=== PATIENT | male | born 1970 | race Caucasian/White ===

== ENCOUNTER 2020-02-28 15:55 | Outpatient (CLI) | payer OTHER, SELFPAY ==
--- NOTE | ~2020-02-28 | XR_ITS ---
EXAMINATION: XR hip RT min 3V w AP pelvis DATE: 02/28/2020 16:39 INDICATION: Right hip and groin pain. TECHNIQUE: Anteroposterior view of the pelvis and anteroposterior, frog leg and cross-table lateral v iews of the right hip were obtained. COMPARISON: None. FINDINGS: Alignment is normal. No fracture. Severe right hip osteoarthritis with superolateral predominant join t space narrowing which approaches [id number] with subarticular cystic change at the apex of the fe moral head and at the superolateral acetabulum. Marginal osteophytes about the right femoral head as well as decreased anterosuperior femoral head neck offset. Mild left hip osteoarthritis. Transitional lumbosacral segment with severe lower lumbar facet osteoarthritis. Hypertrophic change at the pubic symphysis. Phleboliths in the pelvis. IMPRESSION: 1. Severe right hip osteoarthritis. Reviewed, dictated and finalized at location A.
== END 2020-02-28 15:56 | disposition home or self-care (01) ==
PROVIDERS: PCP Family Medicine; Visit Provider Physician Assistant
DX: M25.559 Pain in unspecified hip (principal); M16.11 Unilateral primary osteoarthritis, right hip
CPT/HCPCS: 73502

== ENCOUNTER 2020-03-09 12:27 | Outpatient (CLI) | payer OTHER, SELFPAY ==
--- NOTE | ~2020-03-09 | XR_ITS ---
EXAMINATION: XR lg joint inject/asp w image DATE: 03/09/2020 13:21 INDICATION: Right hip pain TECHNIQUE: A time-out was performed to verify the patient's name, date of , and procedure to b e performed. The procedure including the risks, benefits, and alternatives was discussed with the pat ient. Risks discussed included bleeding and infection. The patient understood the risks and agreed to proceed. The skin overlying the right hip joint was prepped and draped in usual sterile fashion. A nesthetic was administered with 1% lidocaine subcutaneously. A 22 G needle was advanced under fluoro scopic guidance into the joint. Injection of 0.4 mL of Omnipaque 240 confirmed intra-articular posit ion of the needle. Subsequently, injectate consisting of 3 mm of a 2:1 mixture of 0.5% Marcaine: 80 mg/mL Depo-Medrol for a total dose of 80 mg Depo-Medrol was instilled. Washout of contrast was seen c onfirming intra-articular administration. The needle was removed and the entry site was cleaned and d ressed. There were no immediate complications. Fluoroscopy exposure time was 0.1 minutes. The total number of images was 2. FINDINGS: Real-time fluoroscopy demonstrates the needle in the right hip joint. Patient's pain prior to procedure:2/10. Patient's pain following the procedure: 0/10. IMPRESSION: 1. Right hip joint injection of local anesthetic and steroid with decrease in the patient's presentin g pain. Reviewed, dictated and finalized at location A. IMPRESSION: 1. Right hip joint injection of local anesthetic and steroid with decrease in t he patient's presenting pain.
== END 2020-03-09 12:28 | disposition home or self-care (01) ==
PROVIDERS: PCP Family Medicine; Visit Provider Orthopaedic Surgery
DX: M16.11 Unilateral primary osteoarthritis, right hip (principal)
CPT/HCPCS: 20610; 77002; J1040; Q9966

== ENCOUNTER 2020-07-17 13:57 | Outpatient (CLI) | payer OTHER, SELFPAY ==
--- NOTE | 2020-07-17 14:41 | ECG_ITS ---
Measurements Intervals [place] Rate: 55 P: 33 MA: 138 QRS: 13 QRSD: 111 T: 2 QT: 390 QTc: 376 Interpretive Statements SINUS BRADYCARDIA INTRAVENTRICULAR CONDUCTION DELAY DELAYED PRECORDIAL R/S TRANSITION MINIMAL Q WAVES- HIGH LATERAL LEADS BORDERLINE T WAVE ABNORMALITY- INFERIOR LEADS BORDERLINE ECG Electronically Signed On 07-17-2020 14:58:40 HOUSE PAINTING INSTRUCTOR by Javier Campa D.O.
[2020-07-17 15:06] LABS: Basophils Absolute Auto 0.1 K/mm3 (0.0-0.1); Eosinophils Absolute Auto 0.6 K/mm3 (0-0.3); Eosinophils Percent Auto 5.9 % (0-4.4); Hemoglobin 13.9 g/dL (14.0-18.0); Immature Granulocyte Absolute 0.05 K/mm3 (0.00-0.031); Immature Granulocyte Percent A 0.5 % (0-0.5); Lymphocytes Absolute Auto 1.99 K/mm3 (0.9-3.2); Lymphocytes Percent Auto 21.3 % (18.3-44.2); Mean Corpuscular HGB Conc 33.9 g/dl (32-36); Mean Corpuscular Hemoglobin 30.6 pg (26-34); Mean Corpuscular Volume 90.3 fl (80-100); Mean Platelet Volume 8.6 fl (7.4-10.4); Monocytes Absolute Auto 0.7 K/mm3 (0.1-0.6); Monocytes Percent Auto 7.6 % (2.6-8.5); Neutrophils Percent Auto 63.7 % (45.5-73.1); Platelet Count Result 363 k/mm3 (150-375); Red Blood Count 4.54 M/mm3 (4.6-6.20); Red Cell Distribution Width 12.6 % (11.5-14.5); White Blood Count 9.3 K/mm3 (4.5-10.0)
[2020-07-17 15:09] LABS: Add Urine Microscopic? YES; Appearance Urine Clear (Clear); Bilirubin Urine Negative (Negative); Blood Urine Negative (Negative); Color Urine Yellow (Yellow); Glucose Urine UA Negative (Negative); Ketones Urine Negative (Negative); Leukocyte Esterase Ur Negative LEU/UL (Negative); Mucus Urine Rare /lpf; Nitrate Urine Negative (Negative); Protein Urine 1+ mg/dL (Negative); RBC Urine 0-2 /hpf (0-2); Specific Grav Ur 1.029 (1.001-1.035); Urobilinogen Urine Negative mg/dL (<2.0); WBC Urine 0-3 /hpf
[2020-07-17 15:13] LABS: Urine Cotinine NEGATIVE
[2020-07-17 15:15] LABS: Albumin Level 4.6 g/dL (3.5-5.1); Anion Gap 8 mmol/L (8-16); Blood Urea Nitrogen 19 mg/dL (9-20); Calcium 9.2 mg/dL (8.4-10.2); Carbon Dioxide 30 mmol/L (22-30); Chloride 106 mmol/L (98-107); Estimated Glomerular Filt Rate > 60; Glucose 88 mg/dL (75-110); Potassium 4.3 mmol/L (3.4-5.0); Prothrombin Time 13.5 Seconds (11.1-14.7); Sodium 144 mmol/L (137-145)
[2020-07-17 15:16] LABS: Partial Thromboplastin Time 27.6 SECONDS (22.3-36.8)
[2020-07-17 18:54] LABS: Hemoglobin A1C 5.2 % (<5.7)
== END 2020-07-17 13:58 | disposition home or self-care (01) ==
LOC: ANHSURGERY 13:59
PROVIDERS: PCP Family Medicine; Visit Provider Orthopaedic Surgery
DX: M16.9 Osteoarthritis of hip, unspecified (principal); Z01.818 Encounter for other preprocedural examination; I45.9 Conduction disorder, unspecified
CPT/HCPCS: 80048; 80307; 81001; 82040; 83036; 85025; 85610; 85730; 87081; 93005

== ENCOUNTER 2020-07-29 10:26 | Outpatient (CLI) | payer OTHER, SELFPAY ==
[2020-07-29 21:18] LABS: SARS-CoV-2 RNA PCR Negative
== END 2020-07-29 10:27 | disposition home or self-care (01) ==
LOC: ANHCOVIDDT 10:28
PROVIDERS: PCP Family Medicine; Visit Provider Orthopaedic Surgery
DX: Z01.812 Encounter for preprocedural laboratory examination (principal); Z20.828 Contact with and (suspected) exposure to other viral communicable diseases
CPT/HCPCS: 87635; C9803; U0003

== ENCOUNTER 2020-08-17 10:45 | Outpatient (RCR) | payer OTHER, SELFPAY ==
--- NOTE | 2020-08-17 11:40 | PTOPEVAL ---
Thank you for referring Anthony Mai to [facility].? Pt seen for pre-op visit for THR on 08/23/20. Skilled teaching completed. No additional therapy planned. Please review, sign, date and return this plan of care CELIO. I agree with and certify that the following plan of care is medically necessary. Referring Physician Date Admitting Provider: Attending Provider: Jesse Maya MD *PT Outpatient Evaluation Start: 08/17/20 10:56 Freq: Status: Active Protocol: Document 08/17/20 10:56 ANIKA (Rec: 08/17/20 11:40 ANIKA [id number]) Therapy Assessment Status Assessment Status Assessment Status Evaluation/Discharge Note Outpatient Past Medical History Past Medical History Source of Past Medical History Patient,Recalled from Previous Visit, Confirmed with Patient /Family Neurological History Hx Neurological Disorders No Significant History Cardiovascular History Hx Other Cardiac Disorders Yes: DENIES CARDIAC SYMPTOMS, WOULD RUN 3-5 MILES 3XWK. OCCUPATION FACILITATOR Respiratory History Hx Respiratory Disorders No Significant History Gastrointestinal History Hx Gastrointestinal Disorders No Significant History Genitourinary History Hx Genitourinary Disorders No Significant History Musculoskeletal History Hx Crutches or Walker Use Yes: PT HAS WALKER FOR POST OP Query Text:If Yes, Enter Crutches, USE & WILL BRING DAY OF Walker, or Both in the Comment SURGERY Hx Other Musculoskeletal Disorders Yes: DJD RT HIP Hematological History Hx Hematological Disorders No Significant History Endocrine History Hx Endocrine Disorders No Significant History HEENT History Hx Sinus Problems Yes: OCC SINUS ALLERGIES Hx Other HEENT Disorders Yes: READING GLASSES Integumentary History Hx Skin Disorders No Significant History Reproductive History Hx Reproductive Disorders No Significant History Psychosocial History Hx Psychiatric Disorders No Significant History Pain History History of Any Previous or Ongoing No Significant History Instance of Pain Anesthesia History Hx Other Anesthesia Reactions Yes: HAS NEVER HAD GENERAL ANESTHESIA Evaluation Information Problem Diagnosis OA of right hip Onset 1 yr Additional Evaluation Detail planned TKR 08/23/20 Subjective Information He reports decreased leann with Query Text:As Reported By Patient/ increased pain with climbing Family ladders, walking, sleeping on right side, prolonged sitting/ standing. He has difficulty with bending and lifting task.
== END 2020-08-17 14:17 | disposition home or self-care (01) ==
LOC: ANHPT 10:45
PROVIDERS: PCP Family Medicine; Visit Provider Orthopaedic Surgery
DX: M16.11 Unilateral primary osteoarthritis, right hip (principal)
CPT/HCPCS: 97110; 97161

== ENCOUNTER 2020-08-19 00:40 | Outpatient (CLI) | payer OTHER, SELFPAY ==
[2020-08-19 19:14] LABS: SARS-CoV-2 RNA PCR Negative
== END 2020-08-19 00:41 | disposition home or self-care (01) ==
LOC: ANHCOVIDDT 00:40
PROVIDERS: PCP Family Medicine; Visit Provider Orthopaedic Surgery
DX: Z01.818 Encounter for other preprocedural examination (principal); Z20.828 Contact with and (suspected) exposure to other viral communicable diseases
CPT/HCPCS: 87635; C9803; U0003

== ENCOUNTER 2020-08-23 00:35 | Day surgery (SDC) | payer OTHER, SELFPAY ==
[2020-07-17 14:05] VITALS: BMI 26.1
[2020-07-17 14:39] VITALS: BP 141/87; PULSE 69; RESP 16; TEMP 37.2; O2SAT 99
[2020-08-17 08:40] VITALS: BMI 25.9
--- NOTE | 2020-08-22 12:46 | WPDANESEPPF ---
Anes - Initial Pre Proc Eval Procedure: Operation Date: 08/23/20 07:30 Proposed Procedures p Right Total Hip Arthroplasty - Jesse Maya MD Date/Time: 08/22/20 12:46 Surgeon: Jesse Maya MD Pre Op Diagnosis: Right Hip DJD Patient Data Age: 49 Gender: M Height: 1.73 m Weight: 77.5 kg Last Vital Signs Temp 37.2 C 07/17/20 14:39 Pulse 69 07/17/20 14:39 Resp 16 07/17/20 14:39 BP 141/87 H 07/17/20 14:39 Pulse Ox 99 07/17/20 14:39 Allergies Allergy/AdvReac Type Severity Reaction Status Date / Time Penicillins Allergy Mild rash Verified 08/23/20 06:10 Home Medications Medication Instructions Recorded Confirmed Type chlorhexidine gluconate 4 % 1 applic TOPICAL ONCE #237 ml 05/29/20 08/17/20 Rx topical liquid meloxicam 15 mg PO PRN PRN 07/17/20 08/23/20 History aspirin 325 mg tablet 325 mg PO BID #56 tablet 08/21/20 Rx docusate sodium 100 mg capsule 100 mg PO BID #60 cap 08/21/20 Rx Patient hx anesthesia problems: none Family hx anesthesia problems: none PMFSH Past Medical History Medical History Degenerative joint disease (DJD) of hip Hyperlipidemia Family History Family History Other Hyperlipidemia Hypertension Lupus Social History Social History Smoking packs per day: 1 Smoking cigarettes per day: 20.0 Years smoked: 16 Smoking pack-years: 16.00 Smoking status: Former smoker Tobacco type: cigarettes Smoking end date: 09/15/06 Additional smoking assessment comments: DENIES ANY FORM OF TOBACCO/NICOTINE USE Alcohol intake: never Alcohol use details: RECOVERING ALCOHOLIC- LAST DRINK 2004 Substance use: former Substance use type: marijuana and crack/cocaine Living arrangements: with family Spiritual care concerns: No Anes - Eval Final PreProcedure Day of Procedure 08/22/20 12:46 Patient weight: overweight Heart: regular rate and rhythm Lungs: clear to auscultation and normal air movement Airway: Mallampati scale class II Neurological: alert and oriented Last oral intake: >/= 8 hours ASA classification: II Emergent: no Anesthetic plan: proceed Anesthesia type and monitoring: regional spinal Informed Consent: The patient's anesthetic plan and its attendant risks and benefits were discussed with the patient/family/POA. Questions were solicited and answers provided to the satisfaction of the patient/family/POA.
[2020-08-23] VITALS (14 sets, daily range): BP systolic 102–142; BP diastolic 66–90; PULSE 45–67; RESP 12–18; TEMP 36.1–36.6; O2SAT 98–100
--- NOTE | ~2020-08-23 | XR_ITS ---
EXAMINATION: XR hip RT 1V DATE: 08/23/2020 10:38 INDICATION: Postoperative evaluation following right total hip arthroplasty TECHNIQUE: Anteroposterior view of the right hip was obtained. COMPARISON: 07/27/2020 FINDINGS: Interval placement of a right total hip arthroplasty which appears well seated in near anatomic align ment. Minimal postoperative subcutaneous gas in the surrounding soft tissues. No fractures identified . IMPRESSION: 1. Right total hip arthroplasty, negative for postoperative purposes on single provided frontal proje ction. Reviewed, dictated and finalized at location A. NCIAL AID ADVISOR IMPRESSION: 1. Right total hip arthroplasty, negative for postoperative purposes on single provided frontal projection.
[2020-08-23] MEDS: ACETAMINOPHEN 500 MG TABLET 1000 MG PO (06:55)
[2020-08-23] MEDS: LACTATED RINGERS 1,000 ML 30 ML IV CONT ×2 (06:55→10:26)
[2020-08-23] MEDS: TRANEXAMIC ACID 1,000MG/ISO100 1,000 MG/100 ML BAG 200 MG IVPB (06:56)
--- NOTE | 2020-08-23 07:18 | WPDHPUPDATE1 ---
History and Physical Update Update Date/Time: 08/23/20 07:18 History and Physical has been reviewed, including an updated exam of the patient. There are NO changes in the patient's condition. Risks, benefits, and alternatives have been discussed and questions answered. Patient agrees to proceed with procedure.
[2020-08-23] MEDS: CLINDAMYCIN 900 MG/D5W 50 ML 900 MG/50 ML PIGGYBACK 50 MG IVPB (07:33)
[2020-08-23] MEDS: ceFAZolin SODIUM 1 GM VIAL 2 GM IV PUSH (08:41)
[2020-08-23] MEDS: BUPIVACAINE HCL 0.5% PF 30 ML VIAL 20 ML INFILTRATE (09:45)
--- NOTE | 2020-08-23 10:45 | PM.PROC ---
Procedure Note - Detailed Date of procedure: 08/23/20 Pre-op diagnosis: Right Hip DJD R HIP DJD Post-op diagnosis: same Procedure performed: R KELSEY Description of procedure: THE PATIENT WAS TAKEN TO THE OPERATING ROOM IN STABLE CONDITION AND WAS PLACED IN THE LATERAL DECUBITUS AND THE RIGHT LOWER EXTREMITY WAS PREPPED AND DRAPED IN THE STERILE FASHION. INCISION WAS MADE IN THE POSTERIOR LATERAL SIDE OF THE HIP, DOWN TO THE FASCIA LAYER. THE FASCIA WAS INCISED. THE HIP WAS EXPOSED. THE SHORT EXTERNAL ROTATORS WERE EXPOSED. THE SCIATIC NERVE WAS IDENTIFIED. INCISION WAS MADE THROUGH THE SORT EXTERNAL ROTATORS AND THE CAPSULE OF THE HIP JOINT. THE HIP WAS DISLOCATED. AN OSTEOTOMY WAS MADE TO THE FEMORAL NECK ABOUT 1 CM PROXIMAL TO THE LESSER TROCHANTER. THE ACETABULUM WAS EXPOSED. THERE WAS SEVERE DJD SEEN. BEGINNING WITH A 44 REAMER THE ACETABULUM WAS REAMED TO 53 MM. A 53 MM TRIAL WAS PLACED IN 35 DEG OF ABDUCTION AND ANTEVERSION WAS IN ALIGNMENT WITH THE TRANS ACETABULAR LIGAMENT. THE FIT WAS EXCELLENT. THE TRIAL WAS REMOVED. A 54 MM BIOMET G7 COMPONENT WAS THEN TAPPED IN TO PLACE IN 35 DEG OF ABDUCTION AND ANTEVERSION IN ALIGNMENT WITH THE TRANSVERSE ACETABULAR LIGAMENT. THE FIT WAS EXCELLENT. THE ACETABULAR LINER WAS PLACED AND CHECKED FOR STABILITY. NEXT THE FEMUR WAS PREPARED WITH INITIAL CANAL FINDER THEN SEQUENTIAL BROACHING WITH A TAPERLOC HIP SYSTEM, UNTIL A 7 BROACH FIT WELL IN 15 OF ANTEVERSION. A 0 STANDARD OFFSET NECK WITH 36 MM HEAD TRIAL WAS PLACED. THE JANET TEST WAS EXCELLENT AND THE STABILITY IN FLEXION AND ROTATION WAS EXCELLENT. LEG LENGTHS WERE GROSSLY EQUAL. TRIALS WERE REMOVED. A BIOMET TAPERLOC 7 STEM WAS PLACED WITH A STANDARD OFFSET NECK THE FIT WAS EXCELLENT IN 15 DEG OF ANTEVERSION. A +0 CERAMIC 36 MM FEMORAL HEAD WAS PLACED. THE HIP WAS TRIALED AND THE STABILITY WAS EXCELLENT WERE THE LEG LENGTHS AND THE SCHUK TEST. THE WOUND WAS IRRIGATED WITH STERILE BETADINE AND WATER FOR 3 MIN. THEN WASHED AGAIN. THE CAPSULE AND THE EXTERNAL ROTATORS WERE APPROXIMATED WITH NUMBER 1 VICRYL. THE FASCIA WITH No 2 QUIL AND THE SUB CUTANEOUS LAYER WITH 2-0 ABSORBABLE SUTURE WITH A RUNNING 3-0 SUBCUTICULAR LAYER WELL. DERMABOND WAS PLACED AND STERILE DRESSING WAS APPLIED. PATIENT WAS PLACED BACK ON TO THE SUPINE POSITION AND WAS SENT TO RECOVERY ROOM. Anesthesia: spinal Surgeon: Jesse Maya MD Estimated blood loss (mL): 200 Drains: No Complications: No immediate complications Condition: stable Disposition: PACU
--- NOTE | 2020-08-23 11:45 | SUR.PHASEII ---
LUNCH ORDERED FOR PT.
[2020-08-23] MEDS: KETOROLAC 30 MG/ML VIAL (*BKC) IV PUSH (12:15)
[2020-08-23] MEDS: IBUPROFEN 400 MG TABLET 800 MG PO (12:19)
--- NOTE | 2020-08-23 12:24 | SUR.PHASEII ---
SILVIA FROM PHYSICAL THERAPY CALLED.
--- NOTE | 2020-08-23 12:41 | SUR.PHASEII ---
DR. GONZALEZ HERE TO SEE PT.
--- NOTE | 2020-08-23 14:12 | SUR.PHASEII ---
1315 pt called out and said he had a dizzy spell while lying on the stretcher, vss abnormal, bp 75/45, hr-41, pt said episode lasted about 20 seconds. feeling better now, dr echols walked by to check on him also. next vss normal bp-96/53, hr 53.
[2020-08-23] MEDS: traMADol/ACETAMINOPHEN (*CRX) (ULTRACET) 37.5/325 MG TABLET 1 TAB PO (14:13)
--- NOTE | 2020-08-23 15:01 | SUR.PHASEII ---
PHYSICAL THERAPY HERE TO WORK WITH PATIENT.
== END 2020-08-23 16:09 | disposition home or self-care (01) ==
PROVIDERS: PCP Family Medicine; Visit Provider Orthopaedic Surgery
PROC: (CPT 27130; principal; 2020-08-23 07:30)
DX: M16.11 Unilateral primary osteoarthritis, right hip (principal); E78.5 Hyperlipidemia, unspecified; Z79.82 Long term (current) use of aspirin; Z87.891 Personal history of nicotine dependence; F10.21 Alcohol dependence, in remission
CPT/HCPCS: 27130; 36415; 73501; 86850; 86900; 86901; 97110; 97161; A9270; C1713; C1776; J0171; J0690; J1100; J1885; J2250; J2270; J2370; J2405; J2704; J2795; J3010; J7120

== ENCOUNTER 2024-02-02 06:06 | Day surgery (SDC) | payer OTHER, SELFPAY ==
[2023-12-03 09:11] VITALS: BMI 30.7
[2024-01-22 10:02] VITALS: BMI 27.4
--- NOTE | 2024-01-27 12:43 | PM.HPGS ---
History of Present Illness History of Present Illness Consent: Risks, benefits, and alternatives have been discussed and questions answered. Patient agrees to proceed with procedure. Chief complaint: Neoplasm Screening Narrative: Anthony Mia is a 53 year old male who is referred for colon cancer screening. Review of Systems Review of Systems: All systems reviewed & are unremarkable except as noted in HPI and below PMFSH Past Medical History Medical History Degenerative joint disease (DJD) of hip Hyperlipidemia Hypertension Family History Family History Other Hyperlipidemia Hypertension Lupus Social History Social History Smoking packs per day: 1 Smoking cigarettes per day: 20.0 Years smoked: 16 Smoking pack-years: 16.00 Smoking status: Former smoker Tobacco type: cigarettes Smoking end date: 09/15/06 Additional smoking assessment comments: DENIES ANY FORM OF TOBACCO/NICOTINE USE Alcohol intake: former Alcohol use details: RECOVERING ALCOHOLIC- LAST DRINK 2004 Substance use: former Substance use type: marijuana and crack/cocaine Lack of Transportation: No Lack of Food: Never True Current Housing: I Have Housing Concerned About Future Housing: No Difficulty Paying Gas/Electric Bills: No Difficulty Paying for Meds: No Currently Unemployed: No Education: High School Diploma/GED Difficulty w/ Childcare or Family Care: No Living arrangements: with family Gender identity (if verbalized by the patient): Male Sexual Orientation (if Verbalized by the Patient): Straight or Heterosexual Spiritual care concerns: No Agree to blood products: Yes Meds Home Medications and Allergies Home Medications Medication Instructions Recorded Confirmed Type amlodipine 5 mg tablet 5 mg PO DAILY #90 tabs 12/02/23 02/02/24 Rx losartan 25 mg tablet 25 mg PO DAILY 01/22/24 02/02/24 History Allergies Allergy/AdvReac Type Severity Reaction Status Date / Time Penicillins Allergy Mild rash Verified 02/02/24 07:22 Exam Const: General: alert Orientation/consciousness: patient oriented x3 Resp: Auscultation: clear to auscultation bilaterally Cardio: Rhythm: regular rhythm GI: GI Palp: Yes Soft to palpation and No Tenderness to palpation present (GI) Neuro: General: patient oriented x3 Assessment and Plan Assessment and plan (1) Colon cancer screening: Code(s): Z12.11 - Encounter for screening for malignant neoplasm of colon Status: Acute Assessment and Plan: Colonoscopy with possible biopsy or polypectomy or cautery or injection of substances.
--- NOTE | 2024-02-02 06:36 | WPDANESEPPF ---
Anes - Initial Pre Proc Eval Procedure: Operation Date: 02/02/24 08:30 Proposed Procedures p Screening Colonoscopy - Antonio Ahuja MD Date/Time: 02/02/24 06:36 Surgeon: Antonio Ahuja MD Pre Op Diagnosis: Neoplasm Screening Patient Data Age: 53 Gender: M Height: 1.73 m Weight: 82 kg Allergies Allergy/AdvReac Type Severity Reaction Status Date / Time Penicillins Allergy Mild rash Verified 02/02/24 07:22 Home Medications Medication Instructions Recorded Confirmed Type amlodipine 5 mg tablet 5 mg PO DAILY #90 tabs 12/02/23 02/02/24 Rx losartan 25 mg tablet 25 mg PO DAILY 01/22/24 02/02/24 History Patient hx anesthesia problems: none Family hx anesthesia problems: none Results Review: All pre-operative results and documents have been reviewed as part of the pre-operative evaluation. [facility] Past Medical History Medical History Degenerative joint disease (DJD) of hip Hyperlipidemia Hypertension Family History Family History Other Hyperlipidemia Hypertension Lupus Social History Social History Smoking packs per day: 1 Smoking cigarettes per day: 20.0 Years smoked: 16 Smoking pack-years: 16.00 Smoking status: Former smoker Tobacco type: cigarettes Smoking end date: 09/15/06 Additional smoking assessment comments: DENIES ANY FORM OF TOBACCO/NICOTINE USE Alcohol intake: former Alcohol use details: RECOVERING ALCOHOLIC- LAST DRINK 2004 Substance use: former Substance use type: marijuana and crack/cocaine Lack of Transportation: No Lack of Food: Never True Current Housing: I Have Housing Concerned About Future Housing: No Difficulty Paying Gas/Electric Bills: No Difficulty Paying for Meds: No Currently Unemployed: No Education: High School Diploma/GED Difficulty w/ Childcare or Family Care: No Living arrangements: with family Gender identity (if verbalized by the patient): Male Sexual Orientation (if Verbalized by the Patient): Straight or Heterosexual Spiritual care concerns: No Agree to blood products: Yes Anes - Eval Final PreProcedure Day of Procedure 02/02/24 06:36 Patient weight: overweight Heart: regular rate and rhythm Lungs: clear to auscultation Airway: Mallampati scale class II Neurological: alert and oriented Last oral intake: >/= 8 hours ASA classification: III Emergent: no Anesthetic plan: proceed Anesthesia type and monitoring: general GIVS and standard monitoring Results Review: All pre-operative results and documents have been reviewed as part of the pre-operative evaluation. Informed Consent: The patient's anesthetic plan and its attendant risks and benefits were discussed with the patient/family/POA. Questions were solicited and answers provided to the satisfaction of the patient/family/POA.
[2024-02-02 07:27] VITALS: BP 130/92; PULSE 68; RESP 13; TEMP 36.6; O2SAT 99
[2024-02-02] MEDS: LACTATED RINGERS 1,000 ML 150 ML IV CONT (07:38)
[2024-02-02 08:39] VITALS: BP 105/77; PULSE 64; RESP 14; O2SAT 97
[2024-02-02 08:49] VITALS: BP 106/77; PULSE 62; RESP 16; O2SAT 97
[2024-02-02 08:59] VITALS: BP 110/88; PULSE 62; RESP 16; O2SAT 97
--- NOTE | 2024-02-02 11:57 | WPDANESPN ---
Anes - Prog Note Post-Op Date/Time: 02/02/24 11:57 Cardiovascular status: normal Respiratory status: normal Airway patency: baseline Mental status: baseline Post-Op hydration status: normal Vital Signs: Last Vital Signs Temp 36.6 C 02/02/24 07:27 Pulse 62 02/02/24 08:59 Resp 16 02/02/24 08:59 BP 110/88 02/02/24 08:59 Pulse Ox 97 02/02/24 08:59 O2 Del Method Room Air 02/02/24 08:59 Pain Score (VAS): 0 I/O: Intake & Output 02/01/24 02/02/24 02/02/24 23:59 07:59 15:59 Intake Total 150 Balance 150 Post-procedural complaints: none Patient Feedback: Patient satisfied with anesthetic care. Other Findings: Patient vital signs back to baseline. Patient denies nausea and vomiting. Patient's pain under control. Patient OK for discharge.
== END 2024-02-02 09:07 | disposition home or self-care (01) ==
PROVIDERS: PCP Family Medicine; Visit Provider Internal Medicine Gastroenterology
PROC: 0DJD8ZZ Inspection of Lower Intestinal Tract, Via Natural or Artificial Opening Endoscopic (ICD-10-PCS; CPT 45378; principal; 2024-02-02 08:30)
DX: Z12.11 Encounter for screening for malignant neoplasm of colon (principal); K64.8 Other hemorrhoids
CPT/HCPCS: 45378